=== PATIENT | female | born 1995 | race Caucasian/White ===

== ENCOUNTER 2018-02-08 09:52 | Emergency (ER) | payer OTHER ==
[~2018-02-08] VITALS: Ht 157.5 cm; Wt 77.1 kg
[~2018-02-08 09:52] MED LIST: ALBUTEROL; FLOVENT; SINGULAIR
[2018-02-08 10:23] LABS: ABSOLUTE BASOPHILS 0.1 thou/uL (0.0-0.2); ABSOLUTE EOSINOPHILS 0.4 thou/uL (0.0-0.7); ABSOLUTE LYMPHOCYTES 2.3 thou/uL (0.8-5.3); ABSOLUTE MONOCYTES 0.5 thou/uL (0.0-1.2); ABSOLUTE NEUTROPHILS 6.3 thou/uL (1.6-8.1); BASOPHILS 1.2 %; EOSINOPHILS 3.7 %; HEMATOCRIT 40.8 % (37.0-47.0); LYMPHOCYTES 24.4 %; MCH 28.1 pg (26.0-34.0); MCHC 34.3 g/dL (28.0-37.0); MCV 82.1 fL (80.0-100.0); MONOCYTES 5.5 %; MPV 6.8 fl. (7.2-11.1); NUCLEATED RBCS 0 /100WBC; PLATELET COUNT* 418 thou/uL (150-400); POLYS 65.2 %; RBC 4.97 mil/uL (4.20-5.00); RDW-CV 13.1 % (10.5-14.5); WBC 9.6 thou/uL (4.0-11.0)
[2018-02-08 10:32] LABS: CALCIUM 9.3 mg/dL (8.5-10.1)
[2018-02-08 10:34] LABS: APTT 26.6 Seconds (25.0-31.3); PROTIME 10.2 Seconds (9.20-11.50)
[2018-02-08 10:36] LABS: URINE BILIRUBIN NEGATIVE (Negative); URINE BLOOD NEGATIVE (Negative); URINE CLARITY CLEAR; URINE COLOR YELLOW; URINE GLUCOSE-RANDOM NEGATIVE (Negative); URINE KETONES NEGATIVE (Negative); URINE LEUKOCYTES-REFLEX NEGATIVE (Negative); URINE NITRITE-REFLEX NEGATIVE (Negative); URINE PROTEIN NEGATIVE (Negative); URINE SPECIFIC GRAVITY 1.025 (1.005-1.030); URINE UROBILINOGEN 0.2 E.U./dl (0.2-1.0)
[2018-02-08 10:43] LABS: ALBUMIN 4.1 g/dL (3.4-5.0); TOTAL BILIRUBIN 0.5 mg/dL (<0.1-1.0); TOTAL PROTEIN 8.4 g/dL (6.4-8.2)
[2018-02-08 11:06] VITALS: BP 137/89
--- NOTE | 2018-02-08 17:25 | EKG ---
[place] [address] ELECTROCARDIOGRAM REPORT Name: YOLIE CHAMBERLAIN [id number] Admission: 02/08/18 Attend Phys: Discharge: 02/08/18 Date of : [birth year] Report #: [id number] THIS REPORT FOR: //name// [facility] ED Test Date: 2018-02-08 Test Time: 09:58:41 Pat Name: YOLIE CHAMBERLAIN Department: Room: Gender: F Program Therapist: MICHELLE : 1995 Requested By: Cameron Mosquera Order Number: [id number] MD: Chay Hernandez Measurements Intervals [place] Rate: 96 P: 33 [place]: 164 QRS: 29 QRSD: 87 T: 10 QT: 313 QTc: 396 Interpretive Statements Sinus rhythm No previous ECG available for comparison Electronically Signed On 02-08-2018 17:25:13 CDT by Chay Hernandez [email or web address] <ELECTRONICALLY SIGNED> By: Chay Hernandez MD, [facility] 02/08/18 1725 [id number] Chay Hernandez MD, FACC /EPI
== END 2018-02-08 11:07 | disposition home or self-care (01) ==
LOC: M.ERS 09:52
PROVIDERS: Family Medicine
DX: R42 Dizziness and giddiness (principal); J45.909 Unspecified asthma, uncomplicated; Z88.5 Allergy status to narcotic agent; Z88.6 Allergy status to analgesic agent